=== PATIENT | female | born 1960 | race Caucasian/White ===

== ENCOUNTER 2017-01-21 16:47 | Emergency (ER) | payer SELFPAY ==
[~2017-01-21] VITALS: Ht 154.9 cm; Wt 168.0 kg
[~2017-01-21 16:47] MED LIST: HYDR-3533 PO; IBUP800T23 PO; PRED20 PO
[2017-01-21 16:53] VITALS: BP 152/93; PULSE 78; RESP 16; TEMP 98.4; O2SAT 96
[2017-01-21 17:27] VITALS: BP 152/93; PULSE 78; RESP 16; TEMP 98.4; O2SAT 96
--- NOTE | 2017-01-21 18:16 | PD ---
HPI Chief Complaint: Abdominal Pain Time Seen by Provider: 17:17 Travel History International Travel<30 days: No Contact w/Intl Traveler<30days: No Traveled to known affect area: No History of Present Illness HPI This 56-year-old female is complaining of abdominal pain. She says that today around 11:30 she had a sudden onset of pain across her abdomen. Pain was quite severe. She's had a little bit of nausea going on since last night. She went to the emergency department in [place]. She was told that her liver enzymes are abnormal. She was concerned that she might have diverticulitis. She says they did a CT scan but they did not use contrast and were not able to tell her what was wrong. She has had a in the past. She has had diverticulitis in the past. She says she still having the pain. It is a crampy pain across the midabdomen PFSH Past Medical History Diminished Hearing: No Diverticulitis: Yes Tetanus Vaccination: < 5 Years Influenza Vaccination: No ?: Not Past Surgical History Section: Yes Social History Alcohol Use: No Tobacco Use: No Substance Use: No Allergies-Medications (Allergen,Severity, Reaction): Coded Allergies: No Known Allergies (Unverified , 01/21/17) Reported Meds & Prescriptions Reported Meds & Active Scripts Active Review of Systems General / Constitutional: No: Fever, Chills Eyes: No: Diploplia, Blurred Vision HENT: No: Headaches, Vertigo Cardiovascular: No: Chest Pain or Discomfort, Palpitations Respiratory: No: Cough, Shortness of Breath Gastrointestinal: Positive: Abdominal Pain, No: Nausea Genitourinary: No: Urgency, Frequency Neurologic: No: Weakness, Dizziness Psychiatric: No: Anxiety Physical Exam Narrative GENERAL: Well-developed female SKIN: Focused skin assessment warm/dry. HEAD: Atraumatic. Normocephalic. EYES: Pupils equal and round. No scleral icterus. No injection or drainage. ENT: No nasal bleeding or discharge. Mucous membranes pink and moist. NECK: Trachea midline. No JVD. CARDIOVASCULAR: Regular rate and rhythm. No murmur appreciated. RESPIRATORY: No accessory muscle use. Clear to auscultation. Breath sounds equal bilaterally. GASTROINTESTINAL: Abdomen soft, there is some right mid abdominal tenderness nondistended. Hepatic and splenic margins not palpable. MUSCULOSKELETAL: No obvious deformities. No clubbing. No cyanosis. No edema. NEUROLOGICAL: Awake and alert. No obvious cranial nerve deficits. Motor grossly within normal limits. Normal speech. PSYCHIATRIC: Appropriate mood and affect; insight and judgment normal. Data Data Last Documented VS Vital Signs Date Time Temp Pulse Resp B/P (MAP) Pulse Ox O2 Delivery O2 Flow Rate FiO2 01/21/17 17:27 98.4 78 16 152/93 (112) 96 01/21/17 16:53 Room Air Orders Orders Electrocardiogram (01/21/17 17:25) Complete Blood Count With Diff (01/21/17 17:25) Comprehensive Metabolic Panel (01/21/17 17:25) Urinalysis - C+S If Indicated (01/21/17 17:25) Ct Abd/Pel W Iv Contrast(Rout) (01/21/17 17:25) Lipase (01/21/17 17:25) Urine Culture (01/21/17 17:45) Iohexol 350 Inj (Omnipaque 350 Inj) (01/21/17 18:59) Labs Laboratory Tests Test 01/21/17 17:45 01/21/17 17:49 Urine Color YELLOW Urine Turbidity CLEAR Urine pH 5.5 Urine Specific [place] 1.030 Urine Protein NEG mg/dL Urine Glucose (UA) NEG mg/dL Urine Ketones NEG mg/dL Urine Occult Blood LARGE Urine Nitrite NEG Urine Bilirubin NEG Urine Leukocyte Esterase NEG Urine RBC 50-99 /hpf Urine WBC 9-14 /hpf Urine Squamous Epithelial Cells 6-8 /hpf Urine Bacteria RARE /hpf Urine Mucus MANY /lpf Microscopic Urinalysis Comment CULTURE INDICATED White Blood Count 7.2 TH/MM3 Red Blood Count 4.85 MIL/MM3 Hemoglobin 13.6 GM/DL Hematocrit 40.5 % Mean Corpuscular Volume 83.4 FL Mean Corpuscular Hemoglobin 28.0 PG Mean Corpuscular Hemoglobin Concent 33.5 % Red Cell Distribution Width 13.0 % Platelet Count 183 TH/MM3 Mean Platelet Volume 9.0 FL Neutrophils (%) (Auto) 64.6 % Lymphocytes (%) (Auto) 27.3 % Monocytes (%) (Auto) 4.9 % Eosinophils (%) (Auto) 2.5 % Basophils (%) (Auto) 0.7 % Neutrophils # (Auto) 4.5 TH/MM3 Lymphocytes # (Auto) 2.0 TH/MM3 Monocytes # (Auto) 0.4 TH/MM3 Eosinophils # (Auto) 0.2 TH/MM3 Basophils # (Auto) 0.1 TH/MM3 CBC Comment DIFF FINAL Differential Comment Blood Urea Nitrogen 16 MG/DL Creatinine 0.83 MG/DL Random Glucose 92 MG/DL Total Protein 7.4 GM/DL Albumin 3.3 GM/DL Calcium Level 9.1 MG/DL Alkaline Phosphatase 141 U/L Aspartate Amino Transf (AST/SGOT) 45 U/L Alanine Aminotransferase (ALT/SGPT) 110 U/L Total Bilirubin 0.2 MG/DL Sodium Level 142 MEQ/L Potassium Level 3.3 MEQ/L Chloride Level 107 MEQ/L Carbon Dioxide Level 30.2 MEQ/L Anion Gap 5 MEQ/L Estimat Glomerular Filtration Rate 72 ML/MIN Lipase 268 U/L MDM Medical Decision Making Medical Screen Exam Complete: Yes Emergency Medical Condition: Yes Medical Record Reviewed: Yes Differential Diagnosis Differential colitis, lithiasis, nonspecific abdominal pain, diverticulitis Narrative Course EKG does not reveal an etiology for the pain. The there are no calcified gallstones. No diverticulitis. White count is normal. Etiology for the pain has not been determined. He has had ongoing pain. I recommended she take the prescriptions are given AT [facility] Diagnosis Primary Impression: Abdominal pain Additional Instructions: Take medications prescribed at [facility] Disposition: 01 DISCHARGE HOME Condition: Stable Nelson Alvarez MD Jan 21, 2017 18:16
[2017-01-21 18:17] LABS: AUTOMATED NEUTROPHIL # 4.5 TH/MM3 (1.8-7.7); BASOPHIL # 0.1 TH/MM3 (0-0.2); BASOPHIL % 0.7 % (0.0-2.0); EOSINOPHIL # 0.2 TH/MM3 (0-0.4); EOSINOPHIL % 2.5 % (0.0-4.0); HEMATOCRIT 40.5 % (35.0-46.0); HEMO FLAGS DIFF FINAL; LYMPH % 27.3 % (9.0-44.0); MEAN CELL VOLUME 83.4 FL (80.0-100.0); MEAN CORPUSCULAR HGB CONC 33.5 % (32.0-36.0); MONO % 4.9 % (0.0-8.0); NEUT % 64.6 % (16.0-70.0); PLATELET COUNT 183 TH/MM3 (150-450); RED BLOOD COUNT 4.85 MIL/MM3 (4.00-5.30); WHITE BLOOD COUNT 7.2 TH/MM3 (4.0-11.0)
[2017-01-21 18:20] LABS: CHLORIDE 107 MEQ/L (98-107); POTASSIUM 3.3 MEQ/L (3.5-5.1); SODIUM (NA) 142 MEQ/L (136-145)
[2017-01-21 18:25] LABS: ANION GAP 5 MEQ/L (5-15); BICARBONATE 30.2 MEQ/L (21.0-32.0); BLOOD UREA NITROGEN 16 MG/DL (7-18)
[2017-01-21 18:25] LABS: BLOOD, URINE LARGE (NEG); GLUCOSE,URINE NEG (NEG); KETONE, URINE NEG (NEG); NITRITE,URINE NEG (NEG); PH, URINE 5.5 (5.0-8.5)
[2017-01-21 18:27] LABS: ALT (GPT) 110 U/L (10-53); AST (GOT) 45 U/L (15-37)
[2017-01-21 18:28] LABS: URINE COLOR YELLOW (YELLW/STRAW)
[2017-01-21 18:28] LABS: GLOMERULAR FILTRATION RATE 72 ML/MIN (>89)
[2017-01-21 18:29] LABS: MUCUS URINE MANY /lpf (OCC)
[2017-01-21 18:29] LABS: TOTAL BILIRUBIN ADULT 0.2 MG/DL (0.2-1.0)
[2017-01-21 18:30] LABS: BACTERIA, URINE RARE /hpf; COMMENT (UR) CULTURE INDICATED; CULTURE IF INDICATED CULTURE INDICATED
[2017-01-21 18:30] LABS: ALKALINE PHOSPHATASE 141 U/L (45-117)
[2017-01-21] MEDS ORDERED: IOHEXOL 350 MG/ML 10 ML VIAL (for RAD DIAG) IVCONTRAST ONE (18:59)
--- NOTE | 2017-01-21 19:26 | RADRPT ---
EXAM DATE/TIME: 01/21/2017 18:39 [facility] COMPARISON: No previous studies available for comparison. INDICATIONS : Bilateral lower abdominal pain. IV CONTRAST: 85 cc Omnipaque 350 (iohexol) IV ORAL CONTRAST: No oral contrast ingested. RADIATION DOSE: 13.18 CTDIvol (mGy) MEDICAL HISTORY : Hypertension. SURGICAL HISTORY : section. Tubal ligation. ENCOUNTER: Initial ACUITY: 1 day PAIN SCALE: 5/10 LOCATION: Bilateral lower quadrant TECHNIQUE: Volumetric scanning of the abdomen and pelvis was performed. Using automated exposure control and ad justment of the mA and/or kV according to patient size, radiation dose was kept as low as reasonably achievable to obtain optimal diagnostic quality images. DICOM format image data is available electro nically for review and comparison. FINDINGS: LOWER LUNGS: The visualized lower lungs are clear. LIVER: Homogeneous density without lesion. There is no dilation of the biliary tree. No calcified gallston es. SPLEEN: Normal size without lesion. PANCREAS: Within normal limits. KIDNEYS: Normal in size and shape. There is no mass or hydronephrosis. There is a 0.6 cm nonobstructing left renal stone. ADRENAL GLANDS: Within normal limits. VASCULAR: There is no aortic aneurysm. BOWEL/MESENTERY: The stomach, small bowel, and colon demonstrate no acute abnormality. There is no free intraperitone al air or fluid. Few scattered colonic diverticula. Significant inflammatory change is not seen. ABDOMINAL WALL: Within normal limits. RETROPERITONEUM: There is no lymphadenopathy. BLADDER: No wall thickening or mass. REPRODUCTIVE: The pelvic structures are grossly normal. Surgical clips are seen in the pelvis. These are likely fro m tubal ligation. INGUINAL: There is no lymphadenopathy or hernia. MUSCULOSKELETAL: Within normal limits for patient age. CONCLUSION: 1. 6 mm nonobstructing left renal stone. 2. Scattered colonic diverticula in the left-sided colon without inflammatory change. 3. Clips in the pelvis likely from tubal ligation. Garcia Sultana MD on January 21, 2017 at 19:21 Board Certified Radiologist. This report was verified electronically.
[2017-01-21 20:03] VITALS: BP 144/89
--- NOTE | 2017-01-22 17:37 | EKG ---
Date Performed: 01/21/2017 Time Performed: 17:37:44 PTAGE: 56 years EKG: Sinus rhythm MARKED LEFT AXIS DEVIATION PATTERN CONSISTENT WITH PULMONARY DISEASE INCOMPLETE RIGHT BUNDLE BRANCH BLOCK VOLTAGE CRITERIA FOR LVH ABNORMAL ECG NO PREVIOUS TRACING DOCTOR: Carson Ferguson Interpretating Date/Time 01/22/2017 17:34:17
== END 2017-01-21 20:12 | disposition home or self-care (01) ==
LOC: PHED 16:47
DX: R10.9 Unspecified abdominal pain (principal); Z87.19 Personal history of other diseases of the digestive system; R94.31 Abnormal electrocardiogram [ECG] [EKG]
CPT/HCPCS: 74177; 80053; 81001; 83690; 85025; 87086; 93005; 99285; Q9967

== ENCOUNTER 2017-01-23 14:00 | Emergency (ER) | payer SELFPAY ==
[~2017-01-23] VITALS: Ht 154.9 cm; Wt 79.3 kg
[2017-01-23 14:01] VITALS: BP 140/83; PULSE 93; RESP 16; TEMP 98.2; O2SAT 95
[2017-01-23] MEDS ORDERED: METR-1 PO (14:39)
[2017-01-23] MEDS ORDERED: TRAM50TA PO (14:39)
[2017-01-23] MEDS ORDERED: CIPR-9 PO (14:39)
[2017-01-23] MEDS ORDERED: ONDANSETRON HCL 4 MG/2 ML VIAL IVP ONE (14:45)
[2017-01-23] MEDS ORDERED: MORPHINE SULFATE 4 MG/ML INJ IV PUSH ONE (14:45)
[2017-01-23] MEDS ORDERED: SODIUM CHLORIDE 0.9% FLUSH 10 ML FLUSH IV FLUSH PRN (14:45)
--- NOTE | 2017-01-23 14:53 | PD ---
HPI Chief Complaint: Abdominal Pain Time Seen by Provider: 14:33 Travel History International Travel<30 days: No Contact w/Intl Traveler<30days: No Traveled to known affect area: No History of Present Illness HPI 56-year-old female complains of low abdominal pain and back pain. Patient states that the pain started 2 days ago. Patient was seen at [facility] in [facility] and had blood test done and CT scan abdomen pelvis done without contrast. Patient was diagnosis with UTI and possible diverticulitis. Patient was given prescription for Cipro and Flagyl and tramadol. Patient was seen and [place] emergency room 2 days ago after the visit to the emergency room. Blood tests, UA and CT scan abdomen pelvis with contrast done. UA positive for WBC RBC and bacteria. Culture was mixed christina. Patient was advised to take the Cipro and Flagyl and tramadol as directed. Patient states that she has persistent lower abdominal pain despite taking the medications. Patient states the pain in cramping pain started lower abdomen with radiation to the back. Patient denies any fever chills. Patient denies any nausea vomiting diarrhea. Patient denies any dysuria or frequency. Patient denies any vaginal discharge or bleeding. Patient status post in the past. Patient status post tubal ligation. PFSH Past Medical History Diminished Hearing: No Diverticulitis: Yes ?: Not Past Surgical History Section: Yes Social History Alcohol Use: No Tobacco Use: No Substance Use: No Allergies-Medications (Allergen,Severity, Reaction): Coded Allergies: No Known Allergies (Unverified , 01/23/17) Reported Meds & Prescriptions Reported Meds & Active Scripts Active Doxycycline Hyclate 100 Mg Cap 100 Mg PO BID Reported Tramadol (Tramadol HCl) 50 Mg Tab 50 Mg PO Q6H PRN Flagyl (Metronidazole) 500 Mg Tab 500 Mg PO TID Cipro (Ciprofloxacin HCl) 500 Mg Tab 500 Mg PO BID Review of Systems General / Constitutional: No: Fever Eyes: No: Visual changes HENT: No: Headaches Cardiovascular: No: Chest Pain or Discomfort Respiratory: No: Shortness of Breath Gastrointestinal: Positive: Abdominal Pain Genitourinary: No: Dysuria Musculoskeletal: No: Pain Skin: No Rash Neurologic: No: Weakness Psychiatric: No: Depression Endocrine: No: Polydipsia Hematologic/Lymphatic: No: Easy Bruising Physical Exam Narrative GENERAL: Well-nourished, well-developed patient. SKIN: Focused skin assessment warm/dry. HEAD: Normocephalic. EYES: No scleral icterus. No injection or drainage. NECK: Supple, trachea midline. No JVD or lymphadenopathy. CARDIOVASCULAR: Regular rate and rhythm without murmurs, gallops, or rubs. RESPIRATORY: Breath sounds equal bilaterally. No accessory muscle use. GASTROINTESTINAL: Abdomen soft, nondistended. Patient has moderate tenderness on palpation lower abdomen. No rebound tenderness. No mass. MUSCULOSKELETAL: No cyanosis, or edema. BACK: Nontender without obvious deformity. No CVA tenderness. TEACHER SPECIALIST exam: Patient has a small amount of whitish discharge in the vaginal vault. No cervical motion tenderness. Uterus is nonenlarged with moderate tenderness on palpation. No adnexal mass or tenderness. Data Data Last Documented VS Vital Signs Date Time Temp Pulse Resp B/P (MAP) Pulse Ox O2 Delivery O2 Flow Rate FiO2 01/23/17 14:01 98.2 93 16 140/83 (102) 95 Orders Orders Complete Blood Count With Diff (01/23/17 14:45) Comprehensive Metabolic Panel (01/23/17 14:45) Lipase (01/23/17 14:45) Prothrombin Time / Inr (Pt) (01/23/17 14:45) Act Partial Throm Time (Ptt) (01/23/17 14:45) Urinalysis - C+S If Indicated (01/23/17 14:45) Ct Abd/Pel W Iv Contrast(Rout) (01/23/17 14:45) Iv Access Insert/Monitor (01/23/17 14:45) Ecg Monitoring (01/23/17 14:45) Oximetry (01/23/17 14:45) Morphine Inj (Morphine Inj) (01/23/17 14:45) Ondansetron Inj (Zofran Inj) (01/23/17 14:45) Sodium Chloride 0.9% Flush (Ns Flush) (01/23/17 14:45) Urine Culture (01/23/17 15:00) Gc And Chlamydia Pcr (01/23/17 15:39) Wet Prep Profile (01/23/17 15:39) Iohexol 350 Inj (Omnipaque 350 Inj) (01/23/17 16:10) Ceftriaxone Inj (Rocephin Inj) (01/23/17 17:15) Azithromycin Powd Pack (Zithromax Powd P (01/23/17 17:15) Labs Laboratory Tests Test 01/23/17 15:00 01/23/17 15:40 White Blood Count 6.5 TH/MM3 Red Blood Count 4.75 MIL/MM3 Hemoglobin 13.2 GM/DL Hematocrit 40.4 % Mean Corpuscular Volume 84.9 FL Mean Corpuscular Hemoglobin 27.8 PG Mean Corpuscular Hemoglobin Concent 32.7 % Red Cell Distribution Width 13.5 % Platelet Count 184 TH/MM3 Mean Platelet Volume 9.5 FL Neutrophils (%) (Auto) 69.4 % Lymphocytes (%) (Auto) 21.7 % Monocytes (%) (Auto) 5.3 % Eosinophils (%) (Auto) 2.8 % Basophils (%) (Auto) 0.8 % Neutrophils # (Auto) 4.5 TH/MM3 Lymphocytes # (Auto) 1.4 TH/MM3 Monocytes # (Auto) 0.3 TH/MM3 Eosinophils # (Auto) 0.2 TH/MM3 Basophils # (Auto) 0.1 TH/MM3 CBC Comment DIFF FINAL Differential Comment Prothrombin Time 10.2 SEC Prothromb Time International Ratio 0.9 RATIO Activated Partial Thromboplast Time 27.1 SEC Urine Collection Type CLEAN CATCH Urine Color YELLOW Urine Turbidity SLIGHT Urine pH 5.5 Urine Specific [place] 1.022 Urine Protein NEG mg/dL Urine Glucose (UA) NEG mg/dL Urine Ketones NEG mg/dL Urine Occult Blood TRACE Urine Nitrite NEG Urine Bilirubin NEG Urine Leukocyte Esterase SMALL Urine RBC 4-9 /hpf Urine WBC 9-14 /hpf Urine Squamous Epithelial Cells > 8 /hpf Urine Bacteria FEW /hpf Microscopic Urinalysis Comment CULTURE INDICATED Urine Collection Time 15:00 Blood Urea Nitrogen 17 MG/DL Creatinine 0.91 MG/DL Random Glucose 92 MG/DL Total Protein 7.7 GM/DL Albumin 3.4 GM/DL Calcium Level 8.9 MG/DL Alkaline Phosphatase 157 U/L Aspartate Amino Transf (AST/SGOT) 80 U/L Alanine Aminotransferase (ALT/SGPT) 136 U/L Total Bilirubin 0.2 MG/DL Sodium Level 141 MEQ/L Potassium Level 3.7 MEQ/L Chloride Level 107 MEQ/L Carbon Dioxide Level 27.3 MEQ/L Anion Gap 7 MEQ/L Estimat Glomerular Filtration Rate 64 ML/MIN Lipase 211 U/L Clue Cells (Wet Prep) NONE SEEN Vaginal Trichomonas (Wet Prep) NONE SEEN Vaginal Yeast (Wet Prep) NONE SEEN MDM Medical Decision Making Medical Screen Exam Complete: Yes Emergency Medical Condition: Yes Interpretation(s) Last Impressions Abdomen/Pelvis CT 01/23/17 1445 Signed Impressions: Service Date/Time: Monday, January 23, 2017 16:05 - CONCLUSION: Nonspecific changes without inflammatory process. I do not see an etiology for the pain. Vick Ly MD FACR 1659 PM. CBC within normal limit. CMP within normal limit. AST 80. ALT 136. Alk phosphatase 157. UA positive for WBC RBC and bacteria. Wet prep negative. Differential Diagnosis Differential diagnosis including UTI, pyelonephritis, nephrolithiasis, colitis, adhesion pain. Narrative Course 56-year-old female with persistent low abdominal pain and back pain. Pelvic exam with uterine tenderness. Repeat the CT normal. Blood test normal. UA still positive for WBC and RBC. Urine culture 2 days ago positive for mixed [place]. Most likely cervicitis or endometritis. Rocephin 1 g IV. Zithromax 1 g by mouth. Diagnosis Primary Impression: Cervicitis Patient Instructions: General Instructions Additional Instructions: Doxycycline as directed. Follow-up with personal physician, integration project manager and GI if persistent problem. Return if worse. Med/Other Pt SpecificInfo: Prescription(s) given Scripts Hydrocodone-Acetaminophen ([place]) 5-325 mg Tab 1 TAB PO Q6H Y for PAIN, #20 TAB 0 Refills Prov: Felice Borrero MD 01/23/17 Doxycycline Hyclate (Doxycycline Hyclate) 100 Mg Cap 100 MG PO BID for Infection, #20 CAP 0 Refills Prov: Felice Borrero MD 01/23/17 Disposition: 01 DISCHARGE HOME Condition: Stable Felice Borrero MD Jan 23, 2017 14:53
[2017-01-23 15:17] LABS: BLOOD, URINE TRACE (NEG); GLUCOSE,URINE NEG (NEG); KETONE, URINE NEG (NEG); NITRITE,URINE NEG (NEG); PH, URINE 5.5 (5.0-8.5)
[2017-01-23 15:19] LABS: AUTOMATED NEUTROPHIL # 4.5 TH/MM3 (1.8-7.7); BASOPHIL # 0.1 TH/MM3 (0-0.2); BASOPHIL % 0.8 % (0.0-2.0); EOSINOPHIL # 0.2 TH/MM3 (0-0.4); EOSINOPHIL % 2.8 % (0.0-4.0); HEMATOCRIT 40.4 % (35.0-46.0); LYMPH % 21.7 % (9.0-44.0); LYMPHOCYTE # 1.4 TH/MM3 (1.0-4.8); MEAN CELL VOLUME 84.9 FL (80.0-100.0); MEAN CORPUSCULAR HEMOGLOBIN 27.8 PG (27.0-34.0); MEAN CORPUSCULAR HGB CONC 32.7 % (32.0-36.0); MONO % 5.3 % (0.0-8.0); NEUT % 69.4 % (16.0-70.0); PLATELET COUNT 184 TH/MM3 (150-450); RED BLOOD COUNT 4.75 MIL/MM3 (4.00-5.30); RED CELL DISTRIBUTION WIDTH 13.5 % (11.6-17.2); WHITE BLOOD COUNT 6.5 TH/MM3 (4.0-11.0)
[2017-01-23 15:22] LABS: HEMO FLAGS DIFF FINAL
[2017-01-23 15:29] LABS: METHOD OF COLLECTION CLEAN CATCH; URINE COLOR YELLOW (YELLW/STRAW)
[2017-01-23 15:30] LABS: BACTERIA, URINE FEW /hpf; CHLORIDE 107 MEQ/L (98-107); COMMENT (UR) CULTURE INDICATED; CULTURE IF INDICATED CULTURE INDICATED; POTASSIUM 3.7 MEQ/L (3.5-5.1); SODIUM (NA) 141 MEQ/L (136-145); SQUAMOUS EPITHELIAL CELL URINE > 8 /hpf (0-5)
[2017-01-23 15:34] LABS: ANION GAP 7 MEQ/L (5-15); BICARBONATE 27.3 MEQ/L (21.0-32.0); BLOOD UREA NITROGEN 17 MG/DL (7-18)
[2017-01-23 15:35] LABS: APTT (PATIENT) 27.1 SEC (24.3-30.1); INTERNATIONAL NORMALIZED RATIO 0.9 RATIO; PROTHROMBIN TIME - PATIENT 10.2 SEC (9.8-11.6)
[2017-01-23 15:37] LABS: ALT (GPT) 136 U/L (10-53); AST (GOT) 80 U/L (15-37); GLOMERULAR FILTRATION RATE 64 ML/MIN (>89)
[2017-01-23 15:38] LABS: TOTAL BILIRUBIN ADULT 0.2 MG/DL (0.2-1.0)
[2017-01-23 15:39] LABS: ALKALINE PHOSPHATASE 157 U/L (45-117)
[2017-01-23] MEDS ORDERED: IOHEXOL 350 MG/ML 10 ML VIAL (for RAD DIAG) IVCONTRAST ONE (16:10)
--- NOTE | 2017-01-23 16:32 | RADRPT ---
EXAM DATE/TIME: 01/23/2017 16:05 [facility] COMPARISON: CT ABDOMEN & PELVIS W CONTRAST, January 21, 2017, 18:39. INDICATIONS : Persistent lower abdominal pain. IV CONTRAST: 85 cc Omnipaque 350 (iohexol) IV ORAL CONTRAST: No oral contrast ingested. RADIATION DOSE: 14.54 CTDIvol (mGy) MEDICAL HISTORY : Diverticulitis. Hypertension. SURGICAL HISTORY : section. ENCOUNTER: Initial ACUITY: 2 days PAIN SCALE: 7/10 LOCATION: Bilateral lower quadrant TECHNIQUE: Volumetric scanning of the abdomen and pelvis was performed. Using automated exposure control and ad justment of the mA and/or kV according to patient size, radiation dose was kept as low as reasonably achievable to obtain optimal diagnostic quality images. DICOM format image data is available electro nically for review and comparison. FINDINGS: LOWER LUNGS: The visualized lower lungs are clear. LIVER: Homogeneous density without lesion. There is no dilation of the biliary tree. No calcified gallston es. SPLEEN: Normal size without lesion. PANCREAS: Within normal limits. ADRENAL GLANDS: Within normal limits. RIGHT KIDNEY: Normal in size and shape. There is no mass, stone, or hydronephrosis. LEFT KIDNEY: Nonobstructing 6 mm stone VASCULAR: There is no aortic aneurysm. BOWEL/MESENTERY: Normal-sized appendix without inflammatory changes RETROPERITONEUM: There is no lymphadenopathy. PELVIC CONTENTS: Bladder, are unremarkable previous tubal surgery is noted. There is no free fluid or diverticular di sease. ABDOMINAL WALL: Within normal limits. INGUINAL: There is no lymphadenopathy or hernia. MUSCULOSKELETAL: Within normal limits for patient age. CONCLUSION: Nonspecific changes without inflammatory process. I do not see an etiology for the pain. Vick Ly MD FACR on January 23, 2017 at 16:28 Board Certified Radiologist. This report was verified electronically.
[2017-01-23] MEDS ORDERED: DOXY100C PO (17:07)
[2017-01-23] MEDS ORDERED: NORC5TAB PO (17:09)
[2017-01-23] MEDS ORDERED: cefTRIAXone INJ 1,000 MG in SODIUM CHLORIDE 0.9% INJ 100 ML IV ONE (17:15)
[2017-01-23] MEDS ORDERED: AZITHROMYCIN PWD FOR SUSP 1 GM PACKET PO ONE (17:15)
[2017-01-23 18:19] VITALS: O2SAT 98
[2017-01-23 21:23] LABS: CHLAMYDIA PCR NOT DETECTED (NOT DETECT); NEISSERIA PCR NOT DETECTED (NOT DETECT)
== END 2017-01-23 18:20 | disposition home or self-care (01) ==
LOC: PHED 14:00
DX: N72 Inflammatory disease of cervix uteri (principal); M54.9 Dorsalgia, unspecified; Z87.19 Personal history of other diseases of the digestive system
CPT/HCPCS: 74177; 80053; 81001; 83690; 85025; 85610; 85730; 87086; 87210; 87491; 87591; 96365; 96375; 99285; J0696; J2405; Q9967